=== PATIENT | male | born 1960 | race Caucasian/White ===

== ENCOUNTER 2016-08-06 03:08 | Emergency (ER) | payer MEDICAID ==
[~2016-08-06] VITALS: Ht 182.9 cm; Wt 70.3 kg
[2016-08-06 03:21] VITALS: BP 126/87
== END 2016-08-06 04:45 | disposition left against medical advice (07) ==
LOC: ER 03:12
DX: M79.601 Pain in right arm (principal); Z53.21 Procedure and treatment not carried out due to patient leaving prior to being seen by health care provider

== ENCOUNTER 2019-01-22 04:05 | Emergency (ER) | payer MEDICARE, MEDICAID ==
[~2019-01-22] VITALS: Ht 182.9 cm; Wt 70.3 kg
[2019-01-22 08:09] VITALS: BP 135/90
[2019-01-22 09:21] LABS: Anion Gap 7 (5-15); GFR African American 98 mL/min; GFR Non-African American 81 mL/min
[2019-01-22 09:22] LABS: Blood Urea Nitrogen 25 mg/dL (7-18); Carbon Dioxide 26 mmol/L (21-32); Chloride 108 mmol/L (98-107); Glucose 149 mg/dL (74-106); Potassium 3.6 mmol/L (3.5-5.1); Sodium 141 mmol/L (136-145)
[2019-01-22 09:23] LABS: Alanine Aminotransferase 29 U/L (16-61); Albumin 3.7 g/dL (3.4-5.0); Alkaline Phosphatase 111 U/L (45-117); Aspartate Aminotransferase 15 U/L (15-37); Bilirubin, Total 0.2 mg/dL (0.2-1.0); Calcium 8.3 mg/dL (8.5-10.1); Total Protein 6.9 g/dL (6.4-8.2)
[2019-01-22 09:25] LABS: Basophils # (auto) 0.1 uL; Basophils % (auto) 0.8 % (0.0-2.0); Eosinophils # (auto) 0.8 uL; Eosinophils % (auto) 10.1 % (0.0-7.0); Hematocrit 43.6 % (41.0-53.0); Hemoglobin 14.5 g/dL (13.5-17.5); Lymphocytes # (auto) 2.3 uL; Lymphocytes % (auto) 29.7 % (10.0-50.0); Mean Corpuscular Hemoglobin 29.5 pg (28.0-32.0); Mean Corpuscular Hgb Conc. 33.4 g/dL (32.0-36.0); Mean Corpuscular Volume 88.4 fL (80.0-100.0); Monocytes # (auto) 0.8 uL; Monocytes % (auto) 10.7 % (0.0-12.0); Neutrophils # (auto) 3.8 uL; Neutrophils % (auto) 48.7 % (37.0-80.0); Nucleated Red Blood Cells % 0.1 %; Platelet Count (auto) 356 10^3/uL (140-450); Red Blood Cells 4.93 10^6/uL (4.5-5.90); Red Cell Distribution Width 13.4 % (11.8-14.3); White Blood Cell 7.7 10^3/uL (4.4-10.8)
[2019-01-22 09:26] LABS: INR < 0.93 (0.9-1.15); Partial Thromboplastin Time 26.8 sec (23.64-32.05)
== END 2019-01-22 08:29 | disposition left against medical advice (07) ==
LOC: ER 07:42
DX: R06.02 Shortness of breath (principal); Z53.21 Procedure and treatment not carried out due to patient leaving prior to being seen by health care provider
CPT/HCPCS: 36415; 71046; 80053; 84484; 85025; 85610; 85730

== ENCOUNTER 2019-05-06 02:29 | Emergency (ER) | payer MEDICARE, MEDICAID ==
[~2019-05-06] VITALS: Ht 152.4 cm; Wt 81.6 kg
[2019-05-06 02:31] VITALS: BP 142/86
[2019-05-06 03:23] LABS: Basophils # (auto) 0.2 uL; Basophils % (auto) 1.3 % (0.0-2.0); Eosinophils # (auto) 0.6 uL; Eosinophils % (auto) 4.3 % (0.0-7.0); Hematocrit 43.4 % (41.0-53.0); Lymphocytes # (auto) 0.8 uL; Lymphocytes % (auto) 6.2 % (10.0-50.0); Mean Corpuscular Hemoglobin 29.6 pg (28.0-32.0); Mean Corpuscular Hgb Conc. 34.5 g/dL (32.0-36.0); Monocytes # (auto) 0.9 uL; Monocytes % (auto) 6.5 % (0.0-12.0); Neutrophils # (auto) 10.8 uL; Neutrophils % (auto) 81.7 % (37.0-80.0); Nucleated Red Blood Cells % 0.1 %; Platelet Count (auto) 323 10^3/uL (140-450); Red Blood Cells 5.05 10^6/uL (4.5-5.90); Red Cell Distribution Width 12.6 % (11.8-14.3); White Blood Cell 13.2 10^3/uL (4.4-10.8)
[2019-05-06 03:38] LABS: INR 1.02 (0.9-1.15); Partial Thromboplastin Time 29.7 sec (23.64-32.05)
[2019-05-06 03:40] LABS: Alanine Aminotransferase 26 U/L (16-61); Albumin 3.5 g/dL (3.4-5.0); Anion Gap 6 (5-15); Aspartate Aminotransferase 19 U/L (15-37); BUN/Creatinine Ratio 13.8; Blood Urea Nitrogen 12 mg/dL (7-18); Calcium 7.9 mg/dL (8.5-10.1); Carbon Dioxide 24 mmol/L (21-32); Chloride 105 mmol/L (98-107); GFR African American 115 mL/min; GFR Non-African American 95 mL/min; Glucose 106 mg/dL (74-106); Sodium 135 mmol/L (136-145)
[2019-05-06 03:45] LABS: Alkaline Phosphatase 139 U/L (45-117); Bilirubin, Total 0.3 mg/dL (0.2-1.0)
== END 2019-05-06 04:34 | disposition left against medical advice (07) ==
LOC: EDBD 02:29 → ER 02:31
DX: M79.10 Myalgia, unspecified site (principal); Z53.21 Procedure and treatment not carried out due to patient leaving prior to being seen by health care provider
CPT/HCPCS: 36415; 80053; 83605; 83880; 84484; 85025; 85610; 85730; 87040

== ENCOUNTER 2019-12-29 06:01 | Emergency (ER) | payer MEDICARE, MEDICAID ==
[~2019-12-29] VITALS: Ht 182.9 cm; Wt 68.0 kg
[2019-12-29 08:39] VITALS: BP 148/95
== END 2019-12-29 09:13 | disposition home or self-care (01) ==
LOC: ER 06:01
DX: R51 Headache (principal); F17.210 Nicotine dependence, cigarettes, uncomplicated
CPT/HCPCS: 70450

== ENCOUNTER 2020-02-17 06:12 | Emergency (ER) | payer MEDICARE, MEDICAID ==
[~2020-02-17] VITALS: Ht 182.9 cm; Wt 70.3 kg
[2020-02-17 07:22] VITALS: BP 138/96
== END 2020-02-17 07:52 | disposition home or self-care (01) ==
LOC: ER 06:12
DX: H10.33 Unspecified acute conjunctivitis, bilateral (principal); F17.210 Nicotine dependence, cigarettes, uncomplicated

== ENCOUNTER 2021-11-20 21:29 | Emergency (ER) | payer MEDICARE, MEDICAID ==
[~2021-11-20] VITALS: Ht 182.9 cm; Wt 64.1 kg
[2021-11-20 22:21] VITALS: BP 148/94
== END 2021-11-21 02:19 | disposition left against medical advice (07) ==
LOC: ER 21:29
DX: S61.412A Laceration without foreign body of left hand, initial encounter (principal); Z53.21 Procedure and treatment not carried out due to patient leaving prior to being seen by health care provider; W22.8XXA Striking against or struck by other objects, initial encounter; Y93.89 Activity, other specified; Y92.89 Other specified places as the place of occurrence of the external cause; Y99.8 Other external cause status

== ENCOUNTER 2021-11-21 05:16 | Emergency (ER) | payer MEDICARE, MEDICAID ==
[~2021-11-21] VITALS: Ht 182.9 cm; Wt 88.0 kg
[2021-11-21 05:39] VITALS: BP 137/82
[2021-11-21] MEDS ORDERED: TETANUS-DIPTH-ACEL PERTUSSIS 0.5ML SYR Tdap IM ONE (06:00)
== END 2021-11-21 06:17 | disposition home or self-care (01) ==
LOC: ER 05:16
DX: S61.012A Laceration without foreign body of left thumb without damage to nail, initial encounter (principal); F17.210 Nicotine dependence, cigarettes, uncomplicated; W26.8XXA Contact with other sharp object(s), not elsewhere classified, initial encounter; Y93.89 Activity, other specified; Y92.89 Other specified places as the place of occurrence of the external cause; Y99.8 Other external cause status
CPT/HCPCS: 90471; 90715

== ENCOUNTER 2021-12-19 22:55 | Emergency (ER) | payer MEDICARE, MEDICAID ==
[2021-12-19] MEDS ORDERED: fentaNYL CITRATE 100 MCG/2 ML VL IV ONE (23:30)
[2021-12-19] MEDS ORDERED: KETOROLAC TROMETH 30 MG/ML 1ML VIAL IV ONE (23:30)
[2021-12-20] MEDS ORDERED: HYDR-4798 PO (02:48)
[2021-12-20] MEDS ORDERED: IBUP800T27 PO (02:48)
[2021-12-20 03:01] VITALS: BP 121/82
== END 2021-12-20 03:16 | disposition home or self-care (01) ==
LOC: ER 22:55
DX: S80.02XA Contusion of left knee, initial encounter (principal); S80.01XA Contusion of right knee, initial encounter; S27.0XXA Traumatic pneumothorax, initial encounter; F17.210 Nicotine dependence, cigarettes, uncomplicated; V86.56XA Driver of dirt bike or motor/cross bike injured in nontraffic accident, initial encounter; Y93.89 Activity, other specified; Y92.89 Other specified places as the place of occurrence of the external cause; Y99.8 Other external cause status
CPT/HCPCS: 71250; 93005; 96374; 99284; J1885

== ENCOUNTER 2021-12-24 09:50 | Emergency (ER) | payer MEDICARE, MEDICAID ==
[~2021-12-24] VITALS: Ht 182.9 cm; Wt 68.0 kg
[~2021-12-24 09:50] MED LIST: HYDR-4798 PO; IBUP800T27 PO
[2021-12-24 11:53] LABS: Basophils # (auto) 0.1 10 ^3/uL (0-0.2); Basophils % (auto) 1.4 % (0.0-2.0); Eosinophils # (auto) 0.7 10 ^3/uL (0-0.8); Eosinophils % (auto) 10.6 % (0.0-7.0); Hematocrit 42.2 % (41.0-53.0); Hemoglobin 13.5 g/dL (13.5-17.5); Lymphocytes # (auto) 1.4 10 ^3/uL (0.4-5.4); Lymphocytes % (auto) 22.1 % (10.0-50.0); Mean Corpuscular Hemoglobin 28.2 pg (28.0-32.0); Mean Corpuscular Hgb Conc. 32.1 g/dL (32.0-36.0); Mean Corpuscular Volume 87.7 fL (80.0-100.0); Monocytes # (auto) 0.8 10 ^3/uL (0-1.3); Monocytes % (auto) 12.6 % (0.0-12.0); Neutrophils # (auto) 3.3 10 ^3/uL (1.6-8.6); Neutrophils % (auto) 53.3 % (37.0-80.0); Red Blood Cells 4.81 10^6/uL (4.5-5.90); Red Cell Distribution Width 13.2 % (11.8-14.3); White Blood Cell 6.3 10^3/uL (4.4-10.8)
[2021-12-24 12:06] LABS: Albumin 3.6 g/dL (3.4-5.0); Potassium 4.8 mmol/L (3.5-5.1)
[2021-12-24 12:10] LABS: Bilirubin, Total 0.3 mg/dL (0.2-1.0)
[2021-12-24] MEDS ORDERED: TRAM-297 PO (12:56)
[2021-12-24 13:18] VITALS: BP 126/74
== END 2021-12-24 13:18 | disposition home or self-care (01) ==
LOC: ER 10:01
DX: R07.89 Other chest pain (principal); F17.210 Nicotine dependence, cigarettes, uncomplicated; V86.96XA Unspecified occupant of dirt bike or motor/cross bike injured in nontraffic accident, initial encounter; Y93.89 Activity, other specified; Y92.89 Other specified places as the place of occurrence of the external cause; Y99.8 Other external cause status
CPT/HCPCS: 36415; 71046; 80053; 84484; 85025

== ENCOUNTER 2022-05-01 16:27 | Emergency (ER) | payer MEDICARE, MEDICAID ==
[~2022-05-01 16:27] MED LIST changes: +TRAM-297 PO
== END 2022-05-01 18:26 | disposition left against medical advice (07) ==
LOC: ER 16:27
DX: R07.81 Pleurodynia (principal); Z53.21 Procedure and treatment not carried out due to patient leaving prior to being seen by health care provider

== ENCOUNTER 2023-08-07 18:35 | Emergency (ER) | payer MEDICARE, MEDICAID ==
[~2023-08-07] VITALS: Ht 182.9 cm; Wt 72.7 kg
[~2023-08-07 18:35] MED LIST changes: +IBUP-1456 PO; -IBUP800T27 PO
[2023-08-07 18:51] VITALS: BP 151/87; PULSE 86; RESP 16; O2SAT 98
== END 2023-08-07 19:27 | disposition left against medical advice (07) ==
LOC: ER 18:35 → EDBD 18:35 → ER 19:27
DX: R06.02 Shortness of breath (principal); Z53.21 Procedure and treatment not carried out due to patient leaving prior to being seen by health care provider
CPT/HCPCS: 93005

== ENCOUNTER 2024-11-30 00:26 | Emergency (ER) | payer OTHER, MEDICAID ==
[~2024-11-30] VITALS: Ht 177.8 cm; Wt 70.4 kg
[2024-11-30 00:38] VITALS: BP 150/86; PULSE 98; RESP 16; TEMP 98.2; O2SAT 96
--- NOTE | 2024-11-30 00:43 | ED.PDOC ---
History of Present Illness HPI Comments 63-year-old male came to ER via EMS for shortness of breath. Patient denies any medical problems. States few hours ago, he developed shortness of breath, progressively worsening so called paramedics. On evaluation by EMS and on arrival to ER patient is saturating 96% on room air. EMS reports that EN route patient began complaining of lower abdominal pain, nausea and and lower back pain. Patient denies any fever, nausea, vomiting or diarrhea. 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 Allergies: Coded Allergies: NO KNOWN ALLERGIES (Unverified , 11/21/11) Home Meds Active Scripts Tramadol Hcl (Ultram) 50 Mg Tab, 1 TAB PO Q6HR, #30 TAB Prov:GABRIEL PICKERING MD 12/24/21 Ibuprofen (Ibuprofen) 800 Mg Tab, 800 MG PO TID, #30 MG Prov:JAVON RODRIGUEZ MD 12/20/21 Hydrocodone-Acetaminophen (Hydrocodone Bitartrate/AC 10-325 mg) 1 Tab Tab, 1 TAB PO Q6HP PRN, #20 TAB Prov:JAVON RODRIGUEZ MD 12/20/21 Information Source: Patient Mode of Arrival: EMS Severity: Moderate Timing: Hours Duration: Since onset Past Medical History Past Medical History (Other): Pneumothorax Surgical History: Denies all surgeries Family History Family History: Reviewed,noncontributory to illness Social History Smoker: Non-Smoker Alcohol: Denies ETOH Use Drugs: Marijuana Lives In: Home Constitutional: denies: chills, diaphoresis, fatigue, fever, malaise, sweats, weakness, others EENTM: denies: blurred vision, double vision, ear bleeding, ear discharge, ear drainage, ear pain, ear ringing, eye pain, eye redness, hearing loss, mouth pain, mouth swelling, nasal discharge, nose bleeding, nose congestion, nose pain, photophobia, tearing, throat pain, throat swelling, voice changes, others Respiratory: reports: SOB at rest, shortness of breath; denies: cough, hemoptysis, orthopnea, SOB with excertion, stridor, wheezing, others Cardiovascular: denies: chest pain, dizzy spells, diaphoresis, Dyspnea on exertion, edema, irregular heart beat, left arm pain, lightheadedness, palpitations, PND, syncope, others Gastrointestinal: reports: abdominal pain; denies: abdomen distended, blood streaked bowels, constipated, diarrhea, dysphagia, difficulty swallowing, hematemesis, melena, nausea, poor appetite, poor fluid intake, rectal bleeding, rectal pain, vomiting, others Genitourinary: denies: burning, dysuria, flank pain, frequency, hematuria, incontinence, penile discharge, penile sore, pain, testicle pain, testicle swelling, urgency, others Neurological: denies: dizziness, fainting, headache, left sided numbness, left sided weakness, numbness, paresthesia, pre-existing deficit, right sided numbness, right sided weakness, seizure, speech problems, tingling, tremors, weakness, others Musculoskeletal: reports: back pain; denies: gout, joint pain, joint swelling, muscle pain, muscle stiffness, neck pain, others Integumetry: denies: bruises, change in color, change in hair/nails, dryness, laceration, lesions, lumps, rash, wounds, others Allergic/Immunocompromised: denies: Difficulty Healing, Frequent Infections, Hives, Itching, others Hematologic/Lymphatic: denies: anemia, blood clots, easy bleeding, easy bruising, swollen glands, others Endocrine: denies: excessive hunger, excessive sweating, excessive thirst, excessive urination, flushing, intolerance to cold, intolerance to heat, unexplained weight gain, unexplained weight loss, others Psychiatric: reports: anxiety; denies: bipolar disorder, depression, hopeless, panic disorder, schizophrenia, sleepless, suicidal, others Physical Exam General Appearance: No Apparent Distress HEENT: Other (Pupils and face symmetric. Moist mucous membranes.) Neck: Full Range of Motion, Normal Inspection Respiratory: Lungs Clear, No Accessory Muscle Use, No Respiratory Distress, Normal Breath Sounds Cardiovascular: No Edema, No JVD, Regular Rate/Rhythm Breast Exam: Deferred Gastrointestinal: Soft, Suprapubic, Tenderness Genitalia: Deferred Pelvic: Deferred Rectal: Deferred Extremities: Normal inspection, Normal range of motion, Non-tender, No pedal edema Neurologic: Alert (Oriented x4), Normal Affect, Other (Appears anxious. Ambu latory.) Cerebellar Function: NOT DONE Reflexes: NOT DONE Skin: Dry, Normal Color, Warm Lymphatic: NOT DONE Was a procedure done? Was a procedure done?: No EKG EKG : Comments Sinus rhythm, rate 91, normal intervals, normal axis, normal QRS, no ST/T changes. Occasional PVC. Differential Dx Considerations may include: Anxiety, respiratory infectious process such as bronchitis or pneumonia, asthma, COPD, CHF, PE, viral syndrome, among others X-Ray, Labs, Meds, VS Vital Signs Date Time Temp Pulse Resp B/P (MAP) Pulse Ox O2 Delivery O2 Flow Rate FiO2 11/30/24 00:38 98.2 98 16 150/86 (107) 96 98.2 11/30/24 00:27 91 Lab Test 11/30/24 00:38 Range/Units White Blood Count 7.7 4.4-10.8 10^3/uL Red Blood Count 5.25 4.5-5.90 10^6/uL Hemoglobin 15.5 13.5-17.5 g/dL Hematocrit 45.5 41.0-53.0 % Mean Corpuscular Volume 86.6 80.0-100.0 fL Mean Corpuscular Hemoglobin 29.6 28.0-32.0 pg Mean Corpuscular Hemoglobin Concent 34.2 32.0-36.0 g/dL Red Cell Distribution Width 13.3 11.8-14.3 % Platelet Count 368 140-450 10^3/uL Mean Platelet Volume 7.2 6.9-10.8 fL Neutrophils (%) (Auto) 52.9 37.0-80.0 % Lymphocytes (%) (Auto) 25.5 10.0-50.0 % Monocytes (%) (Auto) 11.1 0.0-12.0 % Eosinophils (%) (Auto) 8.6 H 0.0-7.0 % Basophils (%) (Auto) 1.9 0.0-2.0 % Neutrophils # (Auto) 4.1 1.6-8.6 10 ^3/uL Lymphocytes # (Auto) 2.0 0.4-5.4 10 ^3/uL Monocytes # (Auto) 0.8 0-1.3 10 ^3/uL Eosinophils # (Auto) 0.7 0-0.8 10 ^3/uL Basophils # (Auto) 0.1 0-0.2 10 ^3/uL Nucleated Red Blood Cells 0.0 % D-Dimer, Quantitative 0.24 0.0-0.49 mg/L FEU Sodium Level 144 136-145 mmol/L Potassium Level 3.9 3.5-5.1 mmol/L Chloride Level 110 H 98-107 mmol/L Carbon Dioxide Level 25 20-31 mmol/L Anion Gap 9 5-15 Blood Urea Nitrogen 19 9-23 mg/dL Creatinine 1.23 0.700-1.30 mg/dL Glomerular Filtration Rate Calc 65 >90 mL/min BUN/Creatinine Ratio 15.4 10.0-20.0 Serum Glucose 86 74-106 mg/dL Calcium Level 9.4 8.7-10.4 mg/dL Troponin I High Sensitivity 9 </=54 ng/L B-Type Natriuretic Peptide 19.28 0-100 pg/mL X-Ray, Labs, Meds, VS Comment 63-year-old male with a history of a prior pneumothorax brought in by EMS complaining of shortness of breath, lower abdominal pain and nausea Vitals remarkable for BP 150/86 Exam remarkable for suprapubic tenderness to palpation Rhythm strip independently interpreted by me: Sinus rhythm, rate 91, occasional PVC CBC, basic metabolic panel, D-dimer, BNP and troponin unremarkable Prior to completion of evaluation and treatment, patient decided not to stay and signed out against medical advice. I was not advised that the patient left until after he had signed the AMA paperwork and departed. Time of 1ST Reevaluation: 00:39 Reevaluation 1ST: Unchanged Patient Education/Counseling: Diagnosis, Treatment Family Education/Counseling: No Family Present SEPSIS Sepsis Screen Vital Signs Date Time Temp Pulse Resp B/P (MAP) Pulse Ox O2 Delivery O2 Flow Rate FiO2 11/30/24 00:38 98.2 98 16 150/86 (107) 96 98.2 11/30/24 00:27 91 Laboratory Tests Test 11/30/24 00:38 White Blood Count 7.7 10^3/uL (4.4-10.8) Departure 1 Departure Time of Disposition: 01:30 Impression: Primary Impression: Shortness of breath Additional Impression: Lower abdominal pain Disposition: LEFT AGAINST MEDICAL ADVICE Condition: Fair Discharged With: Self Critical Care Note Critical Care Time?: No Stability Stability form required: No Heart Score Heart Score: Heart Score Response (Comments) Value History N/A 0 EKG N/A 0 Age N/A 0 Risk Factors N/A 0 Troponin N/A 0 Total 0 I personally scribed for YING MAJANO MD ([email or web address]) on 11/30/24 at 00:43. Electronically submitted by Erasto Oliva ([facility] ([facility]3]). YING MAJANO MD Nov 30, 2024 00:43
[2024-11-30 01:00] LABS: Basophils # (auto) 0.1 10 ^3/uL (0-0.2); Basophils % (auto) 1.9 % (0.0-2.0); Eosinophils # (auto) 0.7 10 ^3/uL (0-0.8); Eosinophils % (auto) 8.6 % (0.0-7.0); Hematocrit 45.5 % (41.0-53.0); Hemoglobin 15.5 g/dL (13.5-17.5); Lymphocytes % (auto) 25.5 % (10.0-50.0); Mean Corpuscular Hemoglobin 29.6 pg (28.0-32.0); Mean Corpuscular Hgb Conc. 34.2 g/dL (32.0-36.0); Mean Corpuscular Volume 86.6 fL (80.0-100.0); Monocytes # (auto) 0.8 10 ^3/uL (0-1.3); Monocytes % (auto) 11.1 % (0.0-12.0); Neutrophils # (auto) 4.1 10 ^3/uL (1.6-8.6); Neutrophils % (auto) 52.9 % (37.0-80.0); Platelet Count (auto) 368 10^3/uL (140-450); Red Blood Cells 5.25 10^6/uL (4.5-5.90); Red Cell Distribution Width 13.3 % (11.8-14.3); White Blood Cell 7.7 10^3/uL (4.4-10.8)
[2024-11-30 01:11] LABS: Potassium 3.9 mmol/L (3.5-5.1); Sodium 144 mmol/L (136-145)
[2024-11-30 01:12] LABS: Anion Gap 9 (5-15); Calcium 9.4 mg/dL (8.7-10.4); Carbon Dioxide 25 mmol/L (20-31)
[2024-11-30 01:17] LABS: BUN/Creatinine Ratio 15.4 (10.0-20.0); Blood Urea Nitrogen 19 mg/dL (9-23); Glucose 86 mg/dL (74-106)
[2024-11-30 01:18] LABS: Chloride 110 mmol/L (98-107)
--- NOTE | 2024-11-30 01:23 | ECG ---
[facility] Test Date: 2024-11-30 Test Time: 00:27:19 Pat Name: DEUCE CHANEY Department: ED Room: Gender: M [employer]: IC : 1960 Requested By: YING LAO Order Number: [id number] Reading MD: Bill Valdez Measurements Intervals [place] Rate: 91 P: 66 IL: 181 QRS: 65 QRSD: 83 T: 68 QT: 371 QTc: 457 Interpretive Statements Sinus rhythm Ventricular premature complex Electronically Signed On 11-30-2024 20:14:23 PDT by Bill Valdez Please click the below link to view image of tracing.
== END 2024-11-30 01:05 | disposition left against medical advice (07) ==
LOC: EDBD 00:26 → ER 00:26
DX: R10.30 Lower abdominal pain, unspecified (principal); R06.02 Shortness of breath; M54.50 Low back pain, unspecified
CPT/HCPCS: 36415; 80048; 83880; 84484; 85025; 85379; 93005